=== PATIENT | male | born 1930 | race Caucasian/White ===

== ENCOUNTER 2017-02-24 11:41 | Outpatient (CLI) | payer MEDICARE ==
--- NOTE | 2017-02-25 09:03 | Cat Scan Report ---
CT ABDOMEN AND PELVIS WITH CONTRAST: 02/24/17 11:41:00 CLINICAL: Right upper quadrant guarding. COMPARISON: None. TECHNIQUE: Volumetric acquisition and 1.25 millimeter axial scan reconstructions after the uneventful intravenous injection of 100 cc Omnipaque 300. Consent was obtained prior to the administration of contrast. Oral contrast was also given. FINDINGS: Abdomen: Bilateral lower lobe subsegmental atelectasis versus scarring.The liver is small with the right lobe measuring 11 cm in length. The left lobe is relatively smaller than the right. No liver mass. Normally distended gallbladder with no stones. Normal gall bladder wall thickness and no pericholecystic fluid. The bile ducts are normal. Normal stomach, duodenum, pancreas and spleen. Normal adrenal glands and left kidney. The right kidney is normal except for a small focal parenchymal scar with a dilated calyx in the upper pole. No renal mass, calculus or cyst. The renal collecting systems and ureters are nondilated. Atherosclerotic disease of the abdominal aorta and iliac arteries. Noncalcified plaque as well as calcified plaque in the aorta. The aorta measures 2.9 cm maximum diameter. The inferior vena cava is normal. Normal small bowel.Fluid fills the ascending, transverse and descending colon but those portions of the colon are otherwise normal. An appendix is not identified. No mass, lymphadenopathy or ascites.No pneumoperitoneum. 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 Sigmoid diverticulosis no diverticulitis. Normal rectum. No pelvic lymphadenopathy or fluid.. Bone windows demonstrate osteopenia and no suspicious bone lesion. Levoscoliosis and degenerative changes in the spine. Midwedge compression fractures of L4, L2 and L1. No fracture lines are identified. IMPRESSION:1. Nonspecific fluid in the ascending, transverse and descending colon. 2. Normal biliary tract and pancreas. 3. Sigmoid diverticulosis but no diverticulitis. 4. A presumed status post appendectomy. 5. A focal parenchymal scar in the upper pole of the right kidney. 6. Chronic wedge compression fractures of L1, L2 and L4. 5. 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
== END 2017-02-24 11:42 | disposition home or self-care (01) ==
LOC: SPVIMAG 11:41
PROVIDERS: ATTEND Internal Medicine
DX: K57.30 Diverticulosis of large intestine without perforation or abscess without bleeding (principal); N13.30 Unspecified hydronephrosis; I70.0 Atherosclerosis of aorta; M85.80 Other specified disorders of bone density and structure, unspecified site; M48.56XA Collapsed vertebra, not elsewhere classified, lumbar region, initial encounter for fracture; Z98.890 Other specified postprocedural states
CPT/HCPCS: 74177; Q9967

== ENCOUNTER 2020-02-08 13:21 | Outpatient (CLI) | payer MEDICARE ==
--- NOTE | 2020-02-08 16:20 | XRay Report ---
Lumbar spine-7 views SI joints-6 views INDICATION: THORACIC AND LUMBOSACRAL NEURITIS. COMPARISON: None. IMPRESSION: There is mild-moderate dextroscoliosis centered at T12 with grade 1 anterolisthesis of L 4 on L5. 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 There is also mild DJD in both SI joints and both hips with normal alignment. No acute osseous abnormality in the lumbar sp ine or the pelvis. Prostate postoperative change noted. Signer Name: Daniel Eid MD Signed: 02/08/2020 4:15 PM Workstation Name: [id number]
== END 2020-02-08 13:22 | disposition home or self-care (01) ==
LOC: SPVIMAG 13:21
PROVIDERS: ATTEND Internal Medicine
DX: M47.815 Spondylosis without myelopathy or radiculopathy, thoracolumbar region (principal); M47.898 Other spondylosis, sacral and sacrococcygeal region; M41.84 Other forms of scoliosis, thoracic region; M43.16 Spondylolisthesis, lumbar region
CPT/HCPCS: 72100; 72202

== ENCOUNTER 2020-07-08 11:58 | Observation (INO) | payer MEDICARE ==
[2020-07-08] MEDS ORDERED: SODIUM CHLORIDE 0.9% 500 ML 500 ML IV ONE (12:50)
--- NOTE | 2020-07-08 13:22 | XRay Report ---
CHEST 1 VIEW INDICATION / CLINICAL INFORMATION: possible Sepsis. COMPARISON: None available. FINDINGS: SUPPORT DEVICES: None. HEART / MEDIASTINUM: No significant abnormality. LUNGS / PLEURA: Low lung volumes with minimal linear atelectasis in the bilateral mid/lower lungs. No significant effusion. No pneumothorax. ADDITIONAL FINDINGS: Healed deformities of the right upper posterior ribs. IMPRESSION: 1. No acute findings. Signer Name: Bolivar Wilkinson MD Signed: 07/08/2020 1:18 PM Workstation Name: [id number]
[2020-07-08 13:27] LABS: Hemoglobin 13.6 gm/dl (11.8-15.2); Mean Corpuscular HGB Conc 34 % (32-34); Mean Corpuscular Volume 97 fl (84-94); Red Blood Count 4.13 M/mm3 (3.65-5.03); Red Cell Distribution Width 14.6 % (13.2-15.2)
[2020-07-08 13:28] LABS: Platelet Count 231 K/mm3 (140-440)
[2020-07-08 13:29] LABS: INR 1.41 (0.87-1.13)
[2020-07-08 13:33] LABS: Creatine Kinase MB 1.8 ng/mL (0.0-4.0)
[2020-07-08 13:34] LABS: Alanine Aminotransferase 12 units/L (7-56); Albumin 3.5 g/dL (3.9-5); Bilirubin,Direct 1.1 mg/dL (0-0.2); Blood Urea Nitrogen 20 mg/dL (9-20); Calcium 8.7 mg/dL (8.4-10.2); Hemolysis Index 8
[2020-07-08 13:35] LABS: BUN/Creatinine Ratio 29
[2020-07-08] MEDS ORDERED: SODIUM CHLORIDE 0.9% 1000 ML 1,000 ML ONE (13:35)
--- NOTE | 2020-07-08 14:03 | Emergency Department Report ---
ED General Adult HPI - General Chief complaint: Back Pain/Injury Stated complaint: BACK PAIN Time Seen by Provider: 07/08/20 12:43 Source: EMS Mode of arrival: Ambulatory Limitations: No Limitations - History of Present Illness Initial comments: This is an 89-year-old man who has no complaint of back pain whatsoever. I am told by the nurse that the longterm mentioned that he had back pain 3 days ago but not subsequently. He was actually sent to the emergency department for failure to thrive. He is not been taking p.o. substantially for the last 3 days. There is no report of fever. Patient is a rather poor historian. He has a history of dementia. He is able to answer basic questions. He is not complaining of pain. He states that he th inks he is in the "basement of a hospital". He denies shortness of breath. He is largely without complaint. -: Gradual, days(s) Associated Symptoms: denies other symptoms ED Review of Systems ROS: Stated complaint: BACK PAIN Other details as noted in HPI Comment: Unobtainable due to pts medical conditions (Limited secondary to dementia see HPI for available) ED Past Medical Hx - Past Medical History Previous Medical History?: Yes Hx Arthritis: Yes - Surgical History Past Surgical History?: Yes Additional Surgical History: Prostate - Social History Smoking Status: Unknown if ever smoked Substance Use Type: None Other Social History: retirement resident with AND status. ED Physical Exam - General Limitations: No Limitations General appearance: alert, in no apparent distress - Head Head exam: Present: atraumatic, normocephalic - Eye Eye exam: Present: normal appearance. Absent: scleral icterus - ENT ENT exam: Present: mucous membranes moist, other (Somewhat dark green to black coating on tongue) - Neck Neck exam: Present: normal inspection. Absent: tenderness, meningismus - Respiratory Respiratory exam: Present: normal lung sounds bilaterally. Absent: respiratory distress - Cardiovascular Cardiovascular Exam: Present: regular rate, normal rhythm. Absent: systolic murmur, diastolic murmur, rubs, gallop - GI/Abdominal GI/Abdominal exam: Present: soft, normal bowel sounds. Absent: distended, tenderness, guarding, rebound, rigid - Rectal Rectal exam: Present: deferred - Extremities Exam Extremities exam: Present: normal inspection - Back Exam Back exam: Present: normal inspection. Absent: CVA tenderness (R), CVA tenderness (L), muscle spasm, paraspinal tenderness, vertebral tenderness - Neurological Exam Neurological exam: Present: alert (Reasonably alert), CN II-XII intact (As yesenia ble). Absent: oriented X3 (Partially oriented), motor sensory deficit (No focal weakness or numbness noted) - Psychiatric Psychiatric exam: Present: normal mood, flat affect - Skin Skin exam: Present: warm, dry, intact, normal color. Absent: rash ED Course - Reevaluation(s) Reevaluation #1: Yet unable to obtain urinalysis on patient. He is tachycardic, not eating, mildly elevated white count and elevated lactic acid level. We will admit him to observation status for suspected sepsis. I have ordered cefepime. Further antibiotic coverage as per hospitalist discretion. Spoke with Dr. Prabhakar. Admit to his service. 07/08/20 14:31 ED Medical Decision Making - Lab Data Result diagrams: 07/08/20 13:02 07/08/20 13:02 Laboratory Results - last 24 hr 07/08/20 07/08/20 07/08/20 13:02 13:02 13:02 WBC 11.6 H RBC 4.13 Hgb 13.6 Hct 40.0 MCV 97 H MCH 33 H MCHC 34 RDW 14.6 Plt Count 231 Lymph % (Auto) Substation Electrician [place] % (Auto) Substation Electrician Eos % (Auto) Substation Electrician Baso % (Auto) Substation Electrician Lymph # Substation Electrician [place] # Substation Electrician Eos # Substation Electrician Baso # Substation Electrician Seg Neutrophils % Substation Electrician Seg Neutrophils # Substation Electrician PT 17.4 H INR 1.41 H VBG pH Sodium 133 L Potassium 4.1 Chloride 98.8 Carbon Dioxide 19 L Anion Gap 19 BUN 20 Creatinine 0.7 L Estimated GFR > 60 BUN/Creatinine Ratio 29 Glucose 115 H Lactic Acid Calcium 8.7 Magnesium 1.70 Total Bilirubin 1.90 H Direct Bilirubin 1.1 H Indirect Bilirubin 0.8 AST 21 ALT 12 Alkaline Phosphatase 106 Total Creatine Kinase 39 L CK-MB (CK-2) 1.8 CK-MB (CK-2) Rel Index 4.6 H Total Protein 6.5 Albumin 3.5 L Albumin/Globulin Ratio 1.2 Blood Type Antibody Screen 07/08/20 07/08/20 07/08/20 13:02 13:02 13:07 WBC RBC Hgb Hct MCV MCH MCHC RDW Plt Count Lymph % (Auto) [place] % (Auto) Eos % (Auto) Baso % (Auto) Lymph # [place] # Eos # Baso # Seg Neutrophils % Seg Neutrophils # PT INR VBG pH 7.397 Sodium Potassium Chloride Carbon Dioxide Anion Gap BUN Creatinine Estimated GFR BUN/Creatinine Ratio Glucose Lactic Acid 2.20 H* Calcium Magnesium Total Bilirubin Direct Bilirubin Indirect Bilirubin AST ALT Alkaline Phosphatase Total Creatine Kinase CK-MB (CK-2) CK-MB (CK-2) Rel Index Total Protein Albumin Albumin/Globulin Ratio Blood Type A POSITIVE Antibody Screen Negative - Radiology Data Radiology results: report reviewed (Chest x-ray no acute finding) Critical care attestation.: If time is entered above; I have spent that time in minutes in the direct care of this critically ill patient, excluding procedure time. ED Disposition Clinical Impression: Sepsis Qualifiers: Sepsis type: sepsis due to unspecified organism Sepsis acute organ dysfunction status: without acute organ dysfunction Qualified Code(s): A41.9 - Sepsis, unspecified organism Disposition: 09 OP ADMIT IP TO THIS HOSP Is pt being admited?: Yes Does the pt Need Aspirin: Yes Condition: Stable Referrals: MARIA ELENA MCNEIL JR, MD [Primary Care Provider] - 3-5 Days Time of Disposition: 14:32
[2020-07-08] MEDS ORDERED: CEFEPIME/NS 1 GM/100 ML 1 GM/100 ML BAG IV ONE (14:16)
[2020-07-08] MEDS ORDERED: SODIUM CHLORIDE 0.9% 1000 ML 1,000 ML IV ONE (14:17)
[2020-07-08] MEDS ORDERED: ASPIRIN 81 MG TAB CHEW PO ONE (14:32)
--- NOTE | 2020-07-08 22:03 | History and Physical Report ---
History of Present Illness Date of examination: 07/08/20 Date of admission: 07/08/20 15:42 Chief complaint: Decreased p.o. intake for few weeks .Weight loss for few weeks History of present illness: 89-year-old male with no significant past medical history sent from the correction because of very poor p.o. intake and loss of weight. Patient has a history of dementia. Patient has lost a lot of weight. Will await 88 pounds. Very poor p.o. intake. Patient looks cachectic. Patient also complains of back pain since 3 days. No shortness of breath. No fever no chills. No exposure to coronavirus. - Past Medical History Previous Medical History?: Yes Hx Arthritis: Yes - Surgical History Past Surgical History?: Yes Additional Surgical History: Prostate - Social History Smoking Status: Unknown if ever smoked Substance Use Type: None Other Social History: penitentiary resident with AND status. Family history Unavailable Review of Systems ROS: Stated complaint: BACK PAIN Other details as noted in HPI Poor p.o. intake and loss of weight. Patient weighs about 85 pounds Comment: Unobtainable due to pts medical conditions (Limited secondary to dementia see HPI for available) Medications and Allergies Allergies Allergy/AdvReac Type Severity Reaction Status Date / Time acetaminophen AdvReac Hives Verified 07/08/20 14:42 [From Darvocet-N] codeine AdvReac Hives Verified 07/08/20 14:42 furosemide [From Lasix] AdvReac Hives Verified 07/08/20 14:42 oxycodone [From Percocet] AdvReac Hives Verified 07/08/20 14:42 propoxyphene AdvReac Hives Verified 07/08/20 14:42 [From Darvocet-N] Home Medications Medication Instructions Recorded Confirmed Last Taken Type Chlorophyllin/Crane [Chlorophyll 1 each PO QID 07/09/20 07/09/20 Unknown History 20 mg Tablet] Cholestyramine (with Sugar) 4 gm PO QID 07/09/20 07/09/20 Unknown History [Cholestyramine Packet] Beats Music 500 cap PO QID 07/09/20 07/09/20 Unknown History Gabapentin [Neurontin] 400 mg PO BID 07/09/20 07/09/20 Unknown History Multivit-Min/Folic AC/Caffeine 1 each PO HS 07/09/20 07/09/20 Unknown History [One-A-Day [employer]] Nystatin Oint 100,000 unit TRANSDERMA BID 07/09/20 07/09/20 Unknown History Nystatin Oint [Mycostatin Oint] 1 applicatio TP BID 07/09/20 07/09/20 Unknown History QUEtiapine [SEROquel] 25 mg PO HS 07/09/20 07/09/20 Unknown History megestroL [Megace] 40 mg PO BID 07/09/20 07/09/20 Unknown History Exam - Constitutional Vitals: Temp Pulse Resp BP Pulse Ox 98.6 F 80 15 108/77 96 07/08/20 18:15 07/08/20 18:15 07/08/20 18:15 07/08/20 18:15 07/08/20 18:15 General appearance: Present: no acute distress, cachectic (Patient is very cachectic) - EENT Eyes: Present: PERRL ENT: hearing intact, clear oral mucosa - Neck Neck: Present: supple, normal ROM - Respiratory Respiratory effort: normal Respiratory: bilateral: CTA - Cardiovascular Heart rate: 78 Rhythm: regular Heart Sounds: Present: S1 & S2. Absent: rub, click - Extremities Extremities: pulses symmetrical, No edema Peripheral Pulses: within normal limits - Abdominal General gastrointestinal: Present: soft, non-tender, non-distended, normal bowel sounds Male genitourinary: Present: normal - Rectal Rectal Exam: deferred - Integumentary Integumentary: Present: clear, warm, dry - Musculoskeletal Musculoskeletal: strength equal bilaterally, generalized weakness - Psychiatric Psychiatric: depressed - Neurologic Neurologic: CNII-XII intact, moves all extremities - Allied Health Allied health notes reviewed: nursing, case management Results - Labs CBC & Chem 7: 07/09/20 04:56 07/09/20 04:56 Labs: Laboratory Last Values WBC 11.6 K/mm3 (4.5-11.0) H 07/08/20 13:02 RBC 4.13 M/mm3 (3.65-5.03) 07/08/20 13:02 Hgb 13.6 gm/dl (11.8-15.2) 07/08/20 13:02 Hct 40.0 % (35.5-45.6) 07/08/20 13:02 MCV 97 fl (84-94) H 07/08/20 13:02 MCH 33 pg (28-32) H 07/08/20 13:02 MCHC 34 % (32-34) 07/08/20 13:02 RDW 14.6 % (13.2-15.2) 07/08/20 13:02 Plt Count 231 K/mm3 (140-440) 07/08/20 13:02 Lymph % (Auto) Special Equipment Technician 07/08/20 13:02 [place] % (Auto) Special Equipment Technician 07/08/20 13:02 Eos % (Auto) Special Equipment Technician 07/08/20 13:02 Baso % (Auto) Special Equipment Technician 07/08/20 13:02 Lymph # Special Equipment Technician 07/08/20 13:02 [place] # Special Equipment Technician 07/08/20 13:02 Eos # Special Equipment Technician 07/08/20 13:02 Baso # Special Equipment Technician 07/08/20 13:02 Seg Neutrophils % Special Equipment Technician 07/08/20 13:02 Seg Neutrophils # Special Equipment Technician 07/08/20 13:02 PT 17.4 Sec. (12.2-14.9) H 07/08/20 13:02 INR 1.41 (0.87-1.13) H 07/08/20 13:02 VBG pH 7.397 (7.320-7.420) 07/08/20 13:02 Sodium 133 mmol/L (137-145) L 07/08/20 13:02 Potassium 4.1 mmol/L (3.6-5.0) 07/08/20 13:02 Chloride 98.8 mmol/L (98-107) 07/08/20 13:02 Carbon Dioxide 19 mmol/L (22-30) L 07/08/20 13:02 Anion Gap 19 mmol/L 07/08/20 13:02 BUN 20 mg/dL (9-20) 07/08/20 13:02 Creatinine 0.7 mg/dL (0.8-1.3) L 07/08/20 13:02 Estimated GFR > 60 ml/min 07/08/20 13:02 BUN/Creatinine Ratio 29 % 07/08/20 13:02 Glucose 115 mg/dL (75-100) H 07/08/20 13:02 Lactic Acid 2.70 mmol/L (0.7-2.0) H* 07/08/20 15:59 Calcium 8.7 mg/dL (8.4-10.2) 07/08/20 13:02 Magnesium 1.70 mg/dL (1.7-2.3) 07/08/20 13:02 Total Bilirubin 1.90 mg/dL (0.1-1.2) H 07/08/20 13:02 Direct Bilirubin 1.1 mg/dL (0-0.2) H 07/08/20 13:02 Indirect Bilirubin 0.8 mg/dL 07/08/20 13:02 AST 21 units/L (5-40) 07/08/20 13:02 ALT 12 units/L (7-56) 07/08/20 13:02 Alkaline Phosphatase 106 units/L (35-129) 07/08/20 13:02 Total Creatine Kinase 39 units/L (55-170) L 07/08/20 13:02 CK-MB (CK-2) 1.8 ng/mL (0.0-4.0) 07/08/20 13:02 CK-MB (CK-2) Rel Index 4.6 (0-4) H 07/08/20 13:02 Total Protein 6.5 g/dL (6.3-8.2) 07/08/20 13:02 Albumin 3.5 g/dL (3.9-5) L 07/08/20 13:02 Albumin/Globulin Ratio 1.2 % 07/08/20 13:02 Blood Type A POSITIVE 07/08/20 13:07 Antibody Screen Negative 07/08/20 13:07 Short CBC 07/08/20 Range/Units 13:02 WBC 11.6 H (4.5-11.0) K/mm3 Hgb 13.6 (11.8-15.2) gm/dl Hct 40.0 (35.5-45.6) % Plt Count 231 (140-440) K/mm3 BMP 07/08/20 13:02 Sodium 133 L Potassium 4.1 Chloride 98.8 Carbon Dioxide 19 L BUN 20 Creatinine 0.7 L Glucose 115 H Calcium 8.7 Cardiac Enzymes 07/08/20 Range/Units 13:02 Total Creatine Kinase 39 L (55-170) units/L CK-MB (CK-2) 1.8 (0.0-4.0) ng/mL Liver Function 07/08/20 Range/Units 13:02 Total Bilirubin 1.90 H (0.1-1.2) mg/dL Direct Bilirubin 1.1 H (0-0.2) mg/dL AST 21 (5-40) units/L ALT 12 (7-56) units/L Alkaline Phosphatase 106 (35-129) units/L Albumin 3.5 L (3.9-5) g/dL Microbiology: Microbiology 07/08/20 13:02 Peripheral/Venous Blood Culture - Preliminary Culture in Progress 07/08/20 13:02 Peripheral/Venous Blood Culture - Preliminary Culture in Progress - Imaging and Cardiology Chest x-ray: report reviewed (No acute findings) Assessment and Plan Advance Directives: Yes (Full code) VTE prophylaxis?: Chemical Plan of care discussed with patient/family: Yes - Patient Problems (1) Failure to thrive Current Visit: Yes Status: Chronic Qualifiers: Failure to thrive age range: in adult Qualified Code(s): R62.7 - Adult failure to thrive Plan to address problem: Family refuses PEG tube placement We will discuss again about PEG tube tomorrow If not patient to be evaluated by hospice (2) Volume depletion Current Visit: Yes Status: Acute Plan to address problem: IV fluids for now (3) Sepsis Current Visit: Yes Status: Acute Qualifiers: Sepsis type: sepsis due to unspecified organism Sepsis acute organ dysfunction status: without acute organ dysfunction Qualified Code(s): A41.9 - Sepsis, unspecified organism Plan to address problem: Sepsis unlikely Lactic acid elevation nonspecific Will discontinue antibiotics tomorrow if no signs of infection revealed orblood cultures cultures are negative (4) DVT prophylaxis Current Visit: Yes Status: Acute Plan to address problem: Heparin and GI prophylaxis
[2020-07-08] MEDS ORDERED: ACETAMINOPHEN 325 MG TAB PO PRN (22:05)
[2020-07-08] MEDS ORDERED: ONDANSETRON 4 MG/2 ML INJ IV PRN (22:05)
[2020-07-08] MEDS ORDERED: MORPHINE 2 MG/1 ML INJ IV PRN (22:05)
[2020-07-08] MEDS ORDERED: SODIUM CHLORIDE 0.9% 1000 ML 1,000 ML IV SCH (22:15)
[2020-07-08] MEDS: CEFEPIME/NS 1 GM/100 ML 1 GM/100 ML BAG IV SCH (23:15)
[2020-07-08] MEDS: HEPARIN 5,000 UNIT/1 ML VIAL SUB-Q SCH (23:15)
[2020-07-09] MEDS: CEFEPIME/NS 1 GM/100 ML 1 GM/100 ML BAG IV SCH (05:12)
[2020-07-09 05:25] LABS: Bilirubin,Urine NEG (Negative); Blood,Urine SM (Negative); Color,Urine Yellow (Yellow); Mucus,Urine FEW /HPF; Protein,Urine <15 mg/dL mg/dL (Negative); Urobilinogen,Urine < 2.0 mg/dL (<2.0)
[2020-07-09 05:53] LABS: Basophils % (Auto) 0.2 % (0.0-1.8); Eosinophils # (Auto) 0.1 K/mm3 (0.0-0.4); Eosinophils % (Auto) 1.2 % (0.0-4.3); Hematocrit 36.7 % (35.5-45.6); Hemoglobin 12.3 gm/dl (11.8-15.2); Lymphocytes # (Auto) 0.9 K/mm3 (1.2-5.4); Lymphocytes % (Auto) 10.8 % (13.4-35.0); Mean Corpuscular HGB Conc 34 % (32-34); Mean Corpuscular Volume 96 fl (84-94); Monocytes % (Auto) 12.1 % (0.0-7.3); Platelet Count 273 K/mm3 (140-440); Red Blood Count 3.82 M/mm3 (3.65-5.03); Red Cell Distribution Width 14.5 % (13.2-15.2)
[2020-07-09 06:15] LABS: Alanine Aminotransferase 9 units/L (7-56); Albumin 2.8 g/dL (3.9-5); Blood Urea Nitrogen 16 mg/dL (9-20); Calcium 8.3 mg/dL (8.4-10.2); Hemolysis Index 5
[2020-07-09 06:37] LABS: BUN/Creatinine Ratio 32
--- NOTE | 2020-07-09 07:49 | Event Note ---
Date: 07/09/20 Event note Call the daughter this morning to discuss hospice and PEG Daughter's name is Ashley Murillo and her telephone number is on the demographics Daughter wants hospice evaluation and prefers [facility]
[2020-07-09] MEDS: HEPARIN 5,000 UNIT/1 ML VIAL SUB-Q SCH ×2 (10:26→22:05)
--- NOTE | 2020-07-09 15:14 | Progress Note ---
<RASHID CHRISTOPHER - Last Filed: 07/09/20 15:16> Assessment and Plan - Patient Problems (1) Failure to thrive Current Visit: Yes Status: Chronic Qualifiers: Failure to thrive age range: in adult Qualified Code(s): R62.7 - Adult failure to thrive Plan to address problem: - Family refuses PEG tube placement - Hospice evaluation pending - Nutritional supplements - Megasterol restarted (2) Inadequate oral intake Current Visit: Yes Status: Acute Plan to address problem: - Nutritional supplements - Pending ST eval for diet - Megestrol restarted (3) Volume depletion Current Visit: Yes Status: Acute Plan to address problem: - MIVF until diet cleared by ST (4) DVT prophylaxis Current Visit: Yes Status: Acute Plan to address problem: - Heparin and GI prophylaxis History Interval history: ecreased p.o. intake for few weeks .Weight loss for few weeks History of present illness: 89-year-old male with no significant past medical history sent from the [facility] because of very poor p.o. intake and loss of weight. Patient has a history of dementia. Patient has lost a lot of weight. Will await 88 pounds. Very poor p.o. intake. Patient looks cachectic. Patient also complains of back pain since 3 days. No shortness of breath. No fever no chills. No exposure to coronavirus. - Past Medical History Previous Medical History?: Yes Hx Arthritis: Yes - Surgical History Past Surgical History?: Yes Additional Surgical History: Prostate - Social History Smoking Status: Unknown if ever smoked Substance Use Type: None Other Social History: shelter resident with AND status. Hospitalist Physical - Constitutional Vitals: Temp Pulse Resp BP Pulse Ox 98.3 F 72 16 140/78 98 07/09/20 10:39 07/09/20 10:39 07/09/20 10:39 07/09/20 10:39 07/09/20 10:39 General appearance: Present: no acute distress, cachectic (Patient is very cachectic) Results - Labs CBC & Chem 7: 07/09/20 04:56 07/09/20 04:56 Labs: Laboratory Last Values WBC 8.3 K/mm3 (4.5-11.0) 07/09/20 04:56 RBC 3.82 M/mm3 (3.65-5.03) 07/09/20 04:56 Hgb 12.3 gm/dl (11.8-15.2) 07/09/20 04:56 Hct 36.7 % (35.5-45.6) 07/09/20 04:56 MCV 96 fl (84-94) H 07/09/20 04:56 MCH 32 pg (28-32) 07/09/20 04:56 MCHC 34 % (32-34) 07/09/20 04:56 RDW 14.5 % (13.2-15.2) 07/09/20 04:56 Plt Count 273 K/mm3 (140-440) 07/09/20 04:56 Lymph % (Auto) 10.8 % (13.4-35.0) L 07/09/20 04:56 [place] % (Auto) 12.1 % (0.0-7.3) H 07/09/20 04:56 Eos % (Auto) 1.2 % (0.0-4.3) 07/09/20 04:56 Baso % (Auto) 0.2 % (0.0-1.8) 07/09/20 04:56 Lymph # 0.9 K/mm3 (1.2-5.4) L 07/09/20 04:56 [place] # 1.0 K/mm3 (0.0-0.8) H 07/09/20 04:56 Eos # 0.1 K/mm3 (0.0-0.4) 07/09/20 04:56 Baso # 0.0 K/mm3 (0.0-0.1) 07/09/20 04:56 Seg Neutrophils % 75.7 % (40.0-70.0) H 07/09/20 04:56 Seg Neutrophils # 6.3 K/mm3 (1.8-7.7) 07/09/20 04:56 PT 17.4 Sec. (12.2-14.9) H 07/08/20 13:02 INR 1.41 (0.87-1.13) H 07/08/20 13:02 VBG pH 7.397 (7.320-7.420) 07/08/20 13:02 Sodium 139 mmol/L (137-145) 07/09/20 04:56 Potassium 3.6 mmol/L (3.6-5.0) 07/09/20 04:56 Chloride 107.5 mmol/L (98-107) H 07/09/20 04:56 Carbon Dioxide 18 mmol/L (22-30) L 07/09/20 04:56 Anion Gap 17 mmol/L 07/09/20 04:56 BUN 16 mg/dL (9-20) 07/09/20 04:56 Creatinine 0.5 mg/dL (0.8-1.3) L 07/09/20 04:56 Estimated GFR > 60 ml/min 07/09/20 04:56 BUN/Creatinine Ratio 32 % 07/09/20 04:56 Glucose 67 mg/dL (75-100) L 07/09/20 04:56 Hemoglobin A1c 5.1 % (4-6) 07/08/20 13:02 Lactic Acid 1.60 mmol/L (0.7-2.0) 07/09/20 10:03 Calcium 8.3 mg/dL (8.4-10.2) L 07/09/20 04:56 Magnesium 1.70 mg/dL (1.7-2.3) 07/08/20 13:02 Total Bilirubin 1.00 mg/dL (0.1-1.2) 07/09/20 04:56 Direct Bilirubin 1.1 mg/dL (0-0.2) H 07/08/20 13:02 Indirect Bilirubin 0.8 mg/dL 07/08/20 13:02 AST 18 units/L (5-40) 07/09/20 04:56 ALT 9 units/L (7-56) 07/09/20 04:56 Alkaline Phosphatase 98 units/L (35-129) 07/09/20 04:56 Total Creatine Kinase 39 units/L (55-170) L 07/08/20 13:02 CK-MB (CK-2) 1.8 ng/mL (0.0-4.0) 07/08/20 13:02 CK-MB (CK-2) Rel Index 4.6 (0-4) H 07/08/20 13:02 Total Protein 6.5 g/dL (6.3-8.2) 07/09/20 04:56 Albumin 2.8 g/dL (3.9-5) L 07/09/20 04:56 Albumin/Globulin Ratio 0.8 % 07/09/20 04:56 Urine Color Yellow (Yellow) 07/09/20 04:50 Urine Turbidity Clear (Clear) 07/09/20 04:50 Urine pH 5.0 (5.0-7.0) 07/09/20 04:50 Ur Specific [place] 1.019 (1.003-1.030) 07/09/20 04:50 Urine Protein <15 mg/dl mg/dL (Negative) 07/09/20 04:50 Urine Glucose (UA) Neg mg/dL (Negative) 07/09/20 04:50 Urine Ketones 20 mg/dL (Negative) 07/09/20 04:50 Urine Blood Sm (Negative) 07/09/20 04:50 Urine Nitrite Neg (Negative) 07/09/20 04:50 Urine Bilirubin Neg (Negative) 07/09/20 04:50 Urine Urobilinogen < 2.0 mg/dL (<2.0) 07/09/20 04:50 Ur Leukocyte Esterase Neg (Negative) 07/09/20 04:50 Urine WBC (Auto) 2.0 /HPF (0.0-6.0) 07/09/20 04:50 Urine RBC (Auto) 2.0 /HPF (0.0-6.0) 07/09/20 04:50 U Epithel Cells (Auto) < 1.0 /HPF (0-13.0) 07/09/20 04:50 Urine Mucus Few /HPF 07/09/20 04:50 Blood Type A POSITIVE 07/08/20 13:07 Antibody Screen Negative 07/08/20 13:07 Microbiology: Microbiology 07/08/20 13:02 Peripheral/Venous Blood Culture - Preliminary NO GROWTH AFTER 24 HOURS 07/08/20 13:02 Peripheral/Venous Blood Culture - Preliminary NO GROWTH AFTER 24 HOURS [place]/IV: Voiding Method Condom Catheter IV Catheter Type [Left Forearm INT / Saline Lock ] Active Medications - Current Medications Current Medications: Generic Name Dose Route Start Last Admin Trade Name Freq PRN Reason Stop Dose Admin Acetaminophen 650 mg 07/08/20 22:05 Tylenol PO Q4H PRN Pain MILD(1-3)/Fever >100.5/FLEMING Heparin Sodium (Porcine) 5,000 unit 07/08/20 22:15 07/09/20 10:26 Heparin SUB-Q 5,000 unit Q12HR NEVAEH Administration Sodium Chloride 1,000 mls @ 100 mls/hr 07/08/20 22:15 07/08/20 23:16 Nacl 0.9% 1000 Ml IV 100 mls/hr DIRECT NEVAEH Administration Cefepime HCl 1 gm in 100 mls @ 200 mls/hr 07/09/20 22:00 Cefepime/Ns 1 Gm/100 Ml IV Q12HR NEVAEH Protocol Morphine Sulfate 2 mg 07/08/20 22:05 Morphine IV Q4H PRN Pain, Moderate (4-6) Ondansetron HCl 4 mg 07/08/20 22:05 Zofran IV Q8H PRN Nausea And Vomiting Sodium Chloride 10 ml 07/09/20 10:00 07/09/20 13:41 Sodium Chloride Flush Syringe 10 Ml IV Not Given BID NEVAEH Sodium Chloride 10 ml 07/08/20 22:05 Sodium Chloride Flush Syringe 10 Ml IV PRN PRN LINE FLUSH Nutrition/Malnutrition Assess - Dietary Evaluation Nutrition/Malnutrition Findings: Nutrition Notes Start: 07/09/20 09:46 Freq: Status: Active Protocol: Document 07/09/20 09:46 LM (Rec: 07/09/20 10:01 LM [id number]) Nutrition Notes Need for Assessment generated from: MD Order,institute director,MST Current Diagnosis Sepsis Other Pertinent Diagnosis FTT, volume depletion Current Diet Dietary supplements Labs/Tests BG 67 Pertinent Medications Reviewed Height 5 ft 8 in Weight 37.9 kg [place] Body Weight (kg) 70.00 BMI 12.7 Subjective/Other Information MD consult for poor appetite requiring pureed diet at home and ONS. RN screen for MST. Per MD reports pt has decreased PO intake for 2 weeks with wt loss (amount unspecified), and appeares cachetic. MD reports also state pt to receive hospice and possible PEG. Burn Absent Trauma Absent Difficulty In Swallowing,Chewing Current % PO Negligible Minimum of two criteria Yes Energy Intake (severe) < or equal to 50% Estimated Energy Requirement > or equal to 5 days Body Fat Depletion Mild depletion (non-severe) Muscle Mass Mild Depletion (non-severe) #1 Nutrition Diagnosis Malnutrition Etiology Advanced age As Evidenced by Signs and Symptoms Poor PO intakes for 2 weeks, cachetic appearing, BMI 12.7 Is patient on ventilator? No Is Patient Ambulatory and/or Out of Bed No REE-([place]-confined to bed) 1236.192 Kcal/Kg value to use for calculation 45 Approximate Energy Requirements Using 1706 kcal/Kg Calculation Used for Recommendations Kcal/kg Additional Notes Protein: 46-57g (1.2-1.5g/kg) Fluid: 1ml/kcal Nutrition Intervention Change Diet Order: Pureed diet or TF when medically feasible Nutrition Support: Osmolite 1.5 at 45ml/hr Flush 130ml q4h Kcal 1,620 Protein (gm) 68 Fluid (mL) 823 Add Supplement/Snack (indicate name/kcal Ensure Enlive TID /protein ) Provides kCal: 1,050 Provides Protein (gm) 60 Goal #1 diet advancement to pureed or TF when medically feasible Goal #2 wt gain/maintenance Anticipated Discharge Needs: unable to determine at this time Follow-Up By: 07/11/20 Additional Comments F/U for diet advancement, intakes, need for TF <MELVIN ELIZABETH - Last Filed: 07/09/20 17:56> Assessment and Plan Disposition Plan: agree with noted above madeline zhou has contacted hospice to a [facility] Hospitalist Physical - Constitutional Vitals: Temp Pulse Resp BP Pulse Ox 98.1 F 81 20 137/83 96 07/09/20 15:43 07/09/20 15:43 07/09/20 15:43 07/09/20 15:43 07/09/20 15:43 Results - Labs CBC & Chem 7: 07/09/20 04:56 07/09/20 04:56 Labs: Laboratory Last Values WBC 8.3 K/mm3 (4.5-11.0) 07/09/20 04:56 RBC 3.82 M/mm3 (3.65-5.03) 07/09/20 04:56 Hgb 12.3 gm/dl (11.8-15.2) 07/09/20 04:56 Hct 36.7 % (35.5-45.6) 07/09/20 04:56 MCV 96 fl (84-94) H 07/09/20 04:56 MCH 32 pg (28-32) 07/09/20 04:56 MCHC 34 % (32-34) 07/09/20 04:56 RDW 14.5 % (13.2-15.2) 07/09/20 04:56 Plt Count 273 K/mm3 (140-440) 07/09/20 04:56 Lymph % (Auto) 10.8 % (13.4-35.0) L 07/09/20 04:56 [place] % (Auto) 12.1 % (0.0-7.3) H 07/09/20 04:56 Eos % (Auto) 1.2 % (0.0-4.3) 07/09/20 04:56 Baso % (Auto) 0.2 % (0.0-1.8) 07/09/20 04:56 Lymph # 0.9 K/mm3 (1.2-5.4) L 07/09/20 04:56 [place] # 1.0 K/mm3 (0.0-0.8) H 07/09/20 04:56 Eos # 0.1 K/mm3 (0.0-0.4) 07/09/20 04:56 Baso # 0.0 K/mm3 (0.0-0.1) 07/09/20 04:56 Seg Neutrophils % 75.7 % (40.0-70.0) H 07/09/20 04:56 Seg Neutrophils # 6.3 K/mm3 (1.8-7.7) 07/09/20 04:56 PT 17.4 Sec. (12.2-14.9) H 07/08/20 13:02 INR 1.41 (0.87-1.13) H 07/08/20 13:02 VBG pH 7.397 (7.320-7.420) 07/08/20 13:02 Sodium 139 mmol/L (137-145) 07/09/20 04:56 Potassium 3.6 mmol/L (3.6-5.0) 07/09/20 04:56 Chloride 107.5 mmol/L (98-107) H 07/09/20 04:56 Carbon Dioxide 18 mmol/L (22-30) L 07/09/20 04:56 Anion Gap 17 mmol/L 07/09/20 04:56 BUN 16 mg/dL (9-20) 07/09/20 04:56 Creatinine 0.5 mg/dL (0.8-1.3) L 07/09/20 04:56 Estimated GFR > 60 ml/min 07/09/20 04:56 BUN/Creatinine Ratio 32 % 07/09/20 04:56 Glucose 67 mg/dL (75-100) L 07/09/20 04:56 Hemoglobin A1c 5.1 % (4-6) 07/08/20 13:02 Lactic Acid 1.60 mmol/L (0.7-2.0) 07/09/20 10:03 Calcium 8.3 mg/dL (8.4-10.2) L 07/09/20 04:56 Magnesium 1.70 mg/dL (1.7-2.3) 07/08/20 13:02 Total Bilirubin 1.00 mg/dL (0.1-1.2) 07/09/20 04:56 Direct Bilirubin 1.1 mg/dL (0-0.2) H 07/08/20 13:02 Indirect Bilirubin 0.8 mg/dL 07/08/20 13:02 AST 18 units/L (5-40) 07/09/20 04:56 ALT 9 units/L (7-56) 07/09/20 04:56 Alkaline Phosphatase 98 units/L (35-129) 07/09/20 04:56 Total Creatine Kinase 39 units/L (55-170) L 07/08/20 13:02 CK-MB (CK-2) 1.8 ng/mL (0.0-4.0) 07/08/20 13:02 CK-MB (CK-2) Rel Index 4.6 (0-4) H 07/08/20 13:02 Total Protein 6.5 g/dL (6.3-8.2) 07/09/20 04:56 Albumin 2.8 g/dL (3.9-5) L 07/09/20 04:56 Albumin/Globulin Ratio 0.8 % 07/09/20 04:56 Urine Color Yellow (Yellow) 07/09/20 04:50 Urine Turbidity Clear (Clear) 07/09/20 04:50 Urine pH 5.0 (5.0-7.0) 07/09/20 04:50 Ur Specific [place] 1.019 (1.003-1.030) 07/09/20 04:50 Urine Protein <15 mg/dl mg/dL (Negative) 07/09/20 04:50 Urine Glucose (UA) Neg mg/dL (Negative) 07/09/20 04:50 Urine Ketones 20 mg/dL (Negative) 07/09/20 04:50 Urine Blood Sm (Negative) 07/09/20 04:50 Urine Nitrite Neg (Negative) 07/09/20 04:50 Urine Bilirubin Neg (Negative) 07/09/20 04:50 Urine Urobilinogen < 2.0 mg/dL (<2.0) 07/09/20 04:50 Ur Leukocyte Esterase Neg (Negative) 07/09/20 04:50 Urine WBC (Auto) 2.0 /HPF (0.0-6.0) 07/09/20 04:50 Urine RBC (Auto) 2.0 /HPF (0.0-6.0) 07/09/20 04:50 U Epithel Cells (Auto) < 1.0 /HPF (0-13.0) 07/09/20 04:50 Urine Mucus Few /HPF 07/09/20 04:50 Blood Type A POSITIVE 07/08/20 13:07 Antibody Screen Negative 07/08/20 13:07 Microbiology: Microbiology 07/08/20 13:02 Peripheral/Venous Blood Culture - Preliminary NO GROWTH AFTER 24 HOURS 07/08/20 13:02 Peripheral/Venous Blood Culture - Preliminary NO GROWTH AFTER 24 HOURS [place]/IV: Voiding Method Condom Catheter IV Catheter Type [Left Forearm INT / Saline Lock ] Active Medications - Current Medications Current Medications: Generic Name Dose Route Start Last Admin Trade Name Freq PRN Reason Stop Dose Admin Acetaminophen 650 mg 07/08/20 22:05 Tylenol PO Q4H PRN Pain MILD(1-3)/Fever >100.5/FLEMING Gabapentin 400 mg 07/09/20 22:00 Gabapentin PO BID NEVAEH Heparin Sodium (Porcine) 5,000 unit 07/08/20 22:15 07/09/20 10:26 Heparin SUB-Q 5,000 unit Q12HR NEVAEH Administration Potassium Chloride/Dextrose/Sod Cl 10 meq in 1,000 mls @ 75 mls/hr 07/09/20 16:00 07/09/20 17:34 D5w/0.45% Nacl/Kcl 10 Meq IV 75 mls/hr DIRECT NEVAEH Administration Megestrol Acetate 40 mg 07/09/20 22:00 Megestrol PO BID NEVAEH Morphine Sulfate 2 mg 07/08/20 22:05 Morphine IV Q4H PRN Pain, Moderate (4-6) Multivitamins/Minerals 1 each 07/09/20 22:00 Theragran-M Tab PO QHS NEVAEH Ondansetron HCl 4 mg 07/08/20 22:05 Zofran IV Q8H PRN Nausea And Vomiting Quetiapine Fumarate 25 mg 07/09/20 22:00 Seroquel PO HS NEVAEH Sodium Chloride 10 ml 07/09/20 10:00 07/09/20 13:41 Sodium Chloride Flush Syringe 10 Ml IV Not Given BID NEVAEH Sodium Chloride 10 ml 07/08/20 22:05 Sodium Chloride Flush Syringe 10 Ml IV PRN PRN LINE FLUSH Nutrition/Malnutrition Assess - Dietary Evaluation Nutrition/Malnutrition Findings: Nutrition Notes Start: 07/09/20 09:46 Freq: Status: Active Protocol: Document 07/09/20 09:46 LM (Rec: 07/09/20 10:01 LM [id number]) Nutrition Notes Need for Assessment generated from: MD Order,institute director,MST Current Diagnosis Sepsis Other Pertinent Diagnosis FTT, volume depletion Current Diet Dietary supplements Labs/Tests BG 67 Pertinent Medications Reviewed Height 5 ft 8 in Weight 37.9 kg [place] Body Weight (kg) 70.00 BMI 12.7 Subjective/Other Information MD consult for poor appetite requiring pureed diet at home and ONS. RN screen for MST. Per MD reports pt has decreased PO intake for 2 weeks with wt loss (amount unspecified), and appeares cachetic. MD reports also state pt to receive hospice and possible PEG. Burn Absent Trauma Absent Difficulty In Swallowing,Chewing Current % PO Negligible Minimum of two criteria Yes Energy Intake (severe) < or equal to 50% Estimated Energy Requirement > or equal to 5 days Body Fat Depletion Mild depletion (non-severe) Muscle Mass Mild Depletion (non-severe) #1 Nutrition Diagnosis Malnutrition Etiology Advanced age As Evidenced by Signs and Symptoms Poor PO intakes for 2 weeks, cachetic appearing, BMI 12.7 Is patient on ventilator? No Is Patient Ambulatory and/or Out of Bed No REE-([place]-confined to bed) 1236.192 Kcal/Kg value to use for calculation 45 Approximate Energy Requirements Using 1706 kcal/Kg Calculation Used for Recommendations Kcal/kg Additional Notes Protein: 46-57g (1.2-1.5g/kg) Fluid: 1ml/kcal Nutrition Intervention Change Diet Order: Pureed diet or TF when medically feasible Nutrition Support: Osmolite 1.5 at 45ml/hr Flush 130ml q4h Kcal 1,620 Protein (gm) 68 Fluid (mL) 823 Add Supplement/Snack (indicate name/kcal Ensure Enlive TID /protein ) Provides kCal: 1,050 Provides Protein (gm) 60 Goal #1 diet advancement to pureed or TF when medically feasible Goal #2 wt gain/maintenance Anticipated Discharge Needs: unable to determine at this time Follow-Up By: 07/11/20 Additional Comments F/U for diet advancement, intakes, need for TF
[2020-07-09] MEDS: D5W/0.45% NACL/KCL 10 MEQ 10 MEQ/1,000 ML BAG IV SCH (17:34)
[2020-07-09] MEDS ORDERED: QUEtiapine 25 MG TAB PO SCH (22:00)
[2020-07-09] MEDS ORDERED: MULTIVITAMINS,THER W-MINERALS TAB PO SCH (22:00)
[2020-07-09] MEDS ORDERED: [UNRECOGNIZED DRUG - OTHER] PO SCH (22:00)
[2020-07-09] MEDS ORDERED: CEFEPIME/NS 1 GM/100 ML 1 GM/100 ML BAG IV SCH (22:00)
[2020-07-09] MEDS ORDERED: MULTIVIT MIN PO SCH (22:00)
[2020-07-09] MEDS ORDERED: FOLIC AC PO SCH (22:00)
[2020-07-09] MEDS ORDERED: CAFFEINE PO SCH (22:00)
[2020-07-09] MEDS: GABAPENTIN 400 MG CAP PO SCH (22:04)
[2020-07-09] MEDS: MEGESTROL 40 MG TAB PO SCH (22:05)
[2020-07-10] MEDS: D5W/0.45% NACL/KCL 10 MEQ 10 MEQ/1,000 ML BAG IV SCH (05:54)
[2020-07-10 08:47] LABS: Blood Urea Nitrogen 10 mg/dL (9-20); Calcium 8.1 mg/dL (8.4-10.2); Hemolysis Index 6
[2020-07-10 08:56] LABS: BUN/Creatinine Ratio 33
[2020-07-10] MEDS: HEPARIN 5,000 UNIT/1 ML VIAL SUB-Q SCH (10:46)
[2020-07-10] MEDS: MEGESTROL 40 MG TAB PO SCH (10:46)
[2020-07-10] MEDS: GABAPENTIN 400 MG CAP PO SCH (10:46)
[2020-07-10] MEDS ORDERED: POTASSIUM CHLORIDE 20 MEQ PACKET FEEDTUBE ONE (11:31)
--- NOTE | 2020-07-10 14:14 | Discharge Summary ---
Providers - Providers Date of Admission: 07/08/20 15:42 Date of discharge: 07/10/20 Attending physician: MIKAEL NEWMAN 07/08/20 16:39 Speech Therapy Evaluation and Treat [CONS] Routine Reason For Exam: coughs when he swallows water 07/08/20 16:40 Consult to Dietitian/Nutrition [CONS] Routine Physician Instructions: Reason For Exam: Reason for Consult: no appetite at home puree diet Primary care physician: MARIA ELENA MCNEIL Hospitalization Condition: Stable Procedures: 07/08 CXR: FINDINGS: SUPPORT DEVICES: None. HEART / MEDIASTINUM: No significant abnormality. LUNGS / PLEURA: Low lung volumes with minimal linear atelectasis in the bilateral mid/lower lungs. No significant effusion. No pneumothorax. ADDITIONAL FINDINGS: Healed deformities of the right upper posterior ribs. IMPRESSION: 1. No acute findings. Hospital course: 89-year-old male with with dementia who presented to the emergency department on 07/08 because of very poor p.o. intake and loss of weight of about 88 pounds. Patient complains of back pain for about 3 days prior to prior presentation. Workup in the emergency department reveals lactic acidosis and leukocytosis. He was admitted to the medical surgical floor for failure to thrive and had lactic acidosis and leukocytosis at admit. He received antibiotics for 1 day due to leukocytosis however it has resolved and his blood culture were negative and his urinalysis was negative. - Patient Problems (1) Failure to thrive Current Visit: Yes Status: Chronic Qualifiers: Failure to thrive age range: in adult Qualified Code(s): R62.7 - Adult failure to thrive Plan to address problem: - Family refuses PEG tube placement - Hospice evaluation completed and patient will transfer to assisted living with home hospice - Nutritional supplements - Continue Megasterol - Speech Therapy recommends puree and thin liquids (2) Inadequate oral intake Current Visit: Yes Status: Acute Plan to address problem: - Nutritional supplements - Continue Megasterol - Speech Therapy recommend puree and thin liquids (3) Volume depletion Current Visit: Yes Status: chronic Plan to address problem: - s/p MIVF Disposition: DC-50 TO HOSPICE (HOME) Core Measure Documentation - Palliative Care Palliative Care/ Comfort Measures: Hospice Care - Core Measures Any of the following diagnoses?: none Exam - Constitutional Vitals: Temp Pulse Resp BP Pulse Ox 98.3 F 104 H 20 139/90 96 07/10/20 04:37 07/10/20 04:37 07/10/20 04:37 07/10/20 04:37 07/10/20 04:37 General appearance: Present: no acute distress - EENT Eyes: Present: PERRL, EOM intact ENT: hearing decreased, poor dentition - Neck Neck: Present: supple, normal ROM - Respiratory Respiratory effort: normal Respiratory: bilateral: CTA - Cardiovascular Rhythm: regular Heart Sounds: Present: S1 & S2. Absent: systolic murmur, diastolic murmur - Extremities Extremities: no ischemia, pulses intact, pulses symmetrical, No edema, normal temperature, normal color, Full ROM Peripheral Pulses: within normal limits - Abdominal General gastrointestinal: Present: non-tender, non-distended, normal bowel sounds - Integumentary Integumentary: Present: clear, warm, dry - Musculoskeletal Musculoskeletal: strength equal bilaterally - Psychiatric Psychiatric: appropriate mood/affect, cooperative - Neurologic Neurologic: CNII-XII intact, no focal deficits, moves all extremities - Allied Health Allied health notes reviewed: nursing, ST, social work, case management Plan Activity: advance as tolerated Diet: per dietitian instruction Special Instructions: home hospice Additional Instructions: Please contact your primary care physician or report to the nearest emergency department for worsening symptoms. You will be discharged to your assisted-living facility with home hospice. Follow-up with your primary care physician within 1 to 2 weeks of discharge if needed. Care Plan Goals: Transfer to home hospice Follow up with: MARIA ELENA MCNEIL JR, MD [Primary Care Provider] - 3-5 Days Prescriptions: Gabapentin 400 mg PO BID #60 cap megestroL [Megestrol] 40 mg PO BID #60 tab QUEtiapine [SEROquel] 25 mg PO HS #30 tab
[2020-07-10 14:54] VITALS: BP 126/75
== END 2020-07-10 15:30 | disposition hospice, home (50) ==
LOC: ED 11:58 → 3A 15:42
PROVIDERS: ADMIT Internal Medicine; ATTEND Hospitalist
DX: R62.7 Adult failure to thrive (principal); Z20.828 Contact with and (suspected) exposure to other viral communicable diseases; E86.9 Volume depletion, unspecified; A41.9 Sepsis, unspecified organism; F03.90 Unspecified dementia, unspecified severity, without behavioral disturbance, psychotic disturbance, mood disturbance, and anxiety; M19.90 Unspecified osteoarthritis, unspecified site; Z72.4 Inappropriate diet and eating habits; Z79.899 Other long term (current) drug therapy; Z88.5 Allergy status to narcotic agent; Z88.8 Allergy status to other drugs, medicaments and biological substances
CPT/HCPCS: 36415; 71045; 80048; 80053; 80076; 81001; 82140; 82550; 82553; 82805; 83036; 83735; 85025; 85610; 86850; 86900; 86901; 87040; 92610; 93005; 96361; 96365; 96366; 96372; 99285; G0378; J0692; J1644; J7030; J7040; U0003